=== PATIENT | male | born 2000 | race Caucasian/White ===

== ENCOUNTER 2024-03-16 12:12 | Emergency (ER) | payer OTHER, SELFPAY ==
[2024-03-16 12:14] VITALS: BP 147/89; PULSE 92; RESP 16; TEMP 36.4; O2SAT 100
--- NOTE | 2024-03-16 12:55 | ED.HA ---
HPI - Headache General Chief Complaint: Headache Stated Complaint: MCMAHON Time Seen by Provider: 03/16/24 12:21 History of Present Illness HPI Narrative: 24-year-old male presenting with a migraine. States that he had migraines when he was younger but he has not had 1 in many years. States he developed the migraine yesterday and it slowly increased in intensity until it peaked in the middle of the night. States that he took some Benadryl to help make him go to sleep. He has also taken his friends migraine medications and some [id number] magnesium without relief. Complains of sensitivity to light. No further complaints. Related Data Allergies Allergy/AdvReac Type Severity Reaction Status Date / Time No Known Allergies Allergy Unverified 03/16/24 12:33 Review of Systems Review of Systems: All systems reviewed & are unremarkable except as noted in HPI and below Exam Narrative: GENERAL: Well-appearing, in no acute distress, pleasant cooperative HEAD: Normocephalic, atraumatic. EYES: PERRLA and EOMI. ENT: Grossly unremarkable NECK: Supple. CHEST: No respiratory distress. HEART: Regular rate and rhythm EXTREMITIES: Normal range of motion SKIN: Warm, dry, no rash. NEURO: No focal deficits. Alert and oriented x3. PSYCH: Normal mood and affect. Course Vital Signs Vital signs: Vital Signs Temperature 97.6 F 03/16/24 12:14 Pulse Rate 92 03/16/24 12:14 Respiratory Rate 16 03/16/24 12:14 Blood Pressure 147/89 H 03/16/24 12:14 Pulse Oximetry 100 03/16/24 12:14 Oxygen Delivery Room Air 03/16/24 12:14 Temperature 97.6 F 03/16/24 12:14 Pulse Rate 92 03/16/24 12:14 Respiratory Rate 16 03/16/24 12:14 Blood Pressure 147/89 H 03/16/24 12:14 Pulse Oximetry 100 03/16/24 12:14 Oxygen Delivery Room Air 03/16/24 12:14 MDM - Headache MDM Narrative Medical decision making narrative: 24-year-old male presenting with migraine. Vitals are stable. Exam remarkable for the above. Neurologically intact. Patient received a migraine cocktail with some improvement in his symptoms. States that certainly gone down but is still somewhat there. Offered to do another round of medications but he would like to be discharged. Will release given a dose of some IV Decadron and magnesium. Recommend close PCP follow-up. Appropriate return precautions given. Discharged in stable condition. Differential Diagnosis Differential diagnosis: Likely migraine, tension headache and headache Medical Records Attestation: I reviewed the patient's medical records. Critical Care Time Critical Care Time Critical Care Time: No Discharge Plan Discharge Clinical Impression: Migraine Patient Disposition: Home, Self-Care Condition: Stable Instructions: Antibiotic Form, Migraine Headache (ED) Additional Instructions: We treated you for a migraine today. Please follow-up closely with your PCP. Please drink plenty of hydrating fluids and rest. If your symptoms worsen or other concerning symptoms arise, please return to the ER. Follow-up/Referrals: Steph,Kathe Shipman MD [Primary Care Provider] - Virgilio Bailey MD [Physician] -
[2024-03-16] MEDS: KETOROLAC 15 MG/ML VIAL (*BKC) IV PUSH (13:06)
[2024-03-16] MEDS: PROCHLORPERAZINE EDISYLATE 10 MG/2 ML VIAL IV PUSH (13:06)
[2024-03-16] MEDS: diphenhydrAMINE HCl INJ 50 MG/ML VIAL IV PUSH (13:07)
[2024-03-16] MEDS: SODIUM CHLORIDE 0.9% IV 1,000 ML 999 ML IV CONT (13:07)
[2024-03-16 14:30] VITALS: BP 122/69; PULSE 70; RESP 17; O2SAT 100
[2024-03-16] MEDS: dexAMETHasone SOD PHOS INJ 10 MG/ML 1 ML VIAL IV PUSH (15:45)
[2024-03-16] MEDS: MAGNESIUM SULF 1 GM/D5W 100 ML 1 GM/100 ML BAG IVPB (15:46)
[2024-03-16 16:45] VITALS: BP 123/63; PULSE 60; RESP 17; O2SAT 100
== END 2024-03-16 16:57 | disposition home or self-care (01) ==
PROVIDERS: Emergency Provider Emergency Medicine; PCP Family Medicine
DX: G43.909 Migraine, unspecified, not intractable, without status migrainosus (principal)
CPT/HCPCS: 96361; 96365; 96375; 99284; J0780; J1100; J1200; J1885; J3475; J7030